=== PATIENT | female | born 1985 ===

== ENCOUNTER → 2023-09-07 12:53 | Outpatient (CLI) | payer BC, SELFPAY | PROVIDERS: Visit Provider Nurse Practitioner Family | DX: J02.9 Acute pharyngitis, unspecified (principal); K13.0 Diseases of lips | CPT/HCPCS: 87070; 87220; 87252 ==

== ENCOUNTER 2024-05-10 03:10 | Emergency (ER) | payer BC, SELFPAY ==
[2024-05-10 03:20] VITALS: BP 126/82; PULSE 82; RESP 20; TEMP 36.8; O2SAT 95; BMI 33.3
--- NOTE | 2024-05-10 05:13 | ED_ITS ---
HPI - Psych <Kobe Robles DO - Last Filed: 05/10/24 05:51> General Chief Complaint: Psychiatric Symptoms Stated Complaint: mental health evaluation Time Seen by Provider: 05/10/24 05:13 Source: patient Mode of arrival: Ambulatory History of Present Illness HPI Narrative: 39-year-old female presenting for voluntary mental health evaluation, states over the past few days has had a difficult stressful job and break up does admit to SI with plan to walk into the ocean become hypothermic and , however she denies any other symptoms such as headache visual disturbances chest pain shortness breath fever chills nausea vomiting abdominal pain or any other GI/ symptoms. Related Data Previous Rx's Medication Instructions Recorded benzocaine 20 % mucosal gel 1 applic mucous membrane QID PRN 09/02/23 (Anbesol (benzocaine) Maximum mouth irritation #9 grams Strength) fluticasone propionate 50 1 spray intranasal DAILY #16 grams 09/02/23 mcg/actuation nasal spray,suspension (Flonase Allergy Relief) amoxicillin 500 mg capsule 500 mg PO BID #20 caps 09/09/23 lorazepam 0.5 mg tablet (Ativan) 0.5 mg PO DAILY PRN anxiety #5 tabs 05/10/24 Allergies Allergy/AdvReac Type Severity Reaction Status Date / Time doxylamine Allergy Mild rash Verified 09/07/23 12:35 [From [facility] (doxylamine)] Review of Systems <DO Gretel Bishop Last Filed: 05/10/24 05:51> Review of Systems Narrative: General: Denies fever, chills, weight loss HEENT: Denies headache, eye drainage, eye irritation, head trauma, sore throat, voice change Cardiovascular: Denies any chest pain, palpitations, shortness of breath, tachycardia Respiratory: Denies any shortness of breath, cough, wheeze, stridor GI/: Denies any abdominal pain, nausea, vomiting, diarrhea, bright red blood per rectum, melanotic stools, urinary frequency, urinary retention, dysuria, hematuria MSK: Denies any joint pain, muscle pains, swelling Skin: Denies any rashes, lesions, discoloration Neuro: Denies any headache, lightheadedness, dizziness, fainting, weakness Psych: Positive SI, denies HI Patient History <Kobe Robles DO - Last Filed: 05/10/24 05:51> Social History Smoking Status: Never smoker Smoking Status: Never smoker Exam <Kobe Robles DO - Last Filed: 05/10/24 05:51> Narrative Exam Narrative: General: Cooperative, comfortable, well-developed, not in acute distress HEENT: Normocephalic, atraumatic, PERRLA, normal sclera, eyelids normal, Neck: Active full range of motion, atraumatic Chest: Normal to inspection, negative crepitus, no overlying erythema ecchymosis Respiratory: Normal respiratory effort, not in acute respiratory distress, clear to auscultation bilaterally negative cough, wheeze, tachypnea, rhonchi, rales Cardiology: Regular rate rhythm negative gallop, murmur, rubs GI/: Normal to inspection, soft, nonrigid, no tenderness to palpation, exam deferred MSK: Full range of active range of motion of all 4 extremities, atraumatic Skin: No rashes lesions noted Neuro: Alert awake oriented x3, moves all 4 extremities spontaneously, cranial nerves intact, able to answer all questions appropriately follows commands appropriately Psych: Cooperative, negative active suicidal or homicidal ideations Initial Vital Signs Initial Vital Signs: Vital Signs Temperature 98.3 F 05/10/24 03:20 Pulse Rate 82 05/10/24 03:20 Respiratory Rate 20 05/10/24 03:20 Blood Pressure 126/82 05/10/24 03:20 Pulse Oximetry 95 05/10/24 03:20 Oxygen Delivery Method Room Air 05/10/24 03:20 <Concetta Lopez, DO - Last Filed: 05/11/24 19:03> Initial Vital Signs Initial Vital Signs: Vital Signs Temperature 98.3 F 05/10/24 03:20 Pulse Rate 82 05/10/24 03:20 Respiratory Rate 20 05/10/24 03:20 Blood Pressure 126/82 05/10/24 03:20 Pulse Oximetry 95 05/10/24 03:20 Oxygen Delivery Method Room Air 05/10/24 03:20 Course <Kobe Robles DO - Last Filed: 05/10/24 05:51> Orders Ordered: ED Orders 05/10/24 03:26 Consult to PIPE MAKER - [employer] An[employer] Installer Stat 05/10/24 06:35 Complete Blood Count AUTO DIFF Stat Comprehensive Metabolic Panel Stat Ethanol (ETOH) Stat TSH w/ Reflex to FT4 Stat 05/10/24 06:45 Urine Drug Screen, Rapid Stat 05/10/24 06:47 UA Complete [Urinalysis and Microscopic] Stat Vital Signs Vital signs: Vital Signs - 8 hr 05/10/24 03:20 Temperature 98.3 F Pulse Rate 82 Respiratory Rate 20 Blood Pressure 126/82 Pulse Oximetry 95 Oxygen Delivery Method Room Air <Concetta Lopez, DO - Last Filed: 05/11/24 19:03> Orders Ordered: ED Orders 05/10/24 03:26 Consult to PIPE MAKER - Television Antenna Installer Stat 05/10/24 06:35 Complete Blood Count AUTO DIFF Stat Comprehensive Metabolic Panel Stat Ethanol (ETOH) Stat TSH w/ Reflex to FT4 Stat 05/10/24 06:45 Urine Drug Screen, Rapid Stat 05/10/24 06:47 UA Complete [Urinalysis and Microscopic] Stat Vital Signs Vital signs: Vital Signs - 8 hr 05/10/24 03:20 Temperature 98.3 F Pulse Rate 82 Respiratory Rate 20 Blood Pressure 126/82 Pulse Oximetry 95 Oxygen Delivery Method Room Air MDM - Psych <Kobe Robles, DO - Last Filed: 05/10/24 05:51> Differential Diagnosis Differential diagnosis: Likely suicidal ideation, depression and acute anxiety Lab Data 05/10/24 06:35 05/10/24 06:35 Labs: Lab Results 05/10/24 05/10/24 Range/Units 06:35 06:45 WBC 12.2 H (4.5-11.0) X10^3/uL RBC 4.51 (4.0-5.2) X10^6/uL Hgb 13.3 (12.0-16.0) g/dL Hct 39.4 (36-46) % MCV 87.3 (80-100) fL MCH 29.4 (26-34) PG MCHC 33.7 (30-36) % RDW 13.4 (11.6-14.8) % Plt Count 264 (150-400) X10^3/uL Neut % (Auto) 69.8 (50-75) % Lymph % (Auto) 21.6 L (25-40) % [place] % (Auto) 7.0 (3-14) % Eos % (Auto) 0.7 L (2-4) % Baso % (Auto) 0.9 (0-2) % Neut # (Auto) 8500 H (3435-0947) /uL Lymph # (Auto) 2600 (1279-6588) /uL [place] # (Auto) 900 (0-900) /uL Eos # (Auto) 100 (0-450) /uL Baso # (Auto) 100 (0-100) /uL Sodium 135 L (137-145) mmol/L Potassium 4.3 (3.4-5.1) mmol/L Chloride 105 (98-107) mmol/L Carbon Dioxide 24 (22-32) mmol/L BUN 10 (7-17) mg/dL Creatinine 0.84 (0.52-1.04) mg/dL Estimated GFR > 60 (>60) mL/min BUN/Creatinine Ratio 11.9 (6-22) Glucose 91 (70-100) mg/dL Calcium 9.1 (8.4-10.2) mg/dL Total Bilirubin 0.4 (0.2-1.3) mg/dL AST 24 (14-36) IU/L ALT 17 (<35) IU/L Alkaline Phosphatase 70 (38-126) U/L Total Protein 7.1 (6.3-8.2) g/dL Albumin 4.2 (3.5-5.0) g/dL Globulin 2.9 (1.7-4.1) g/dL Albumin/Globulin Ratio 1.4 (1.0-2.8) TSH 2.27 (0.47-4.68) uIU/mL U Opiates 300ng/mL cut Negative (Negative) Ur Oxycodone Screen Negative (Negative) Urine Methadone Screen Negative (Negative) Ur Barbiturates Screen Negative (Negative) U Tricyclic Antidepress Negative (Negative) Ur Phencyclidine Scrn Negative (Negative) Ur Amphetamines Screen Negative (Negative) U Methamphetamines Scrn Negative (Negative) Ur MDMA Scrn (Ecstasy) Negative (Negative) U Benzodiazepines Scrn Negative (Negative) Urine Cocaine Screen Negative (Negative) U Marijuana (THC) Screen Negative (Negative) Urine pH Normal (Normal) Urine Specific [place] Normal (Normal) Ethyl Alcohol < 10 ( - 10) mg/dL Ur Creatinine Normal (Normal) Point of Care Testing Test Results Negative MDM Narrative Medical decision making narrative: Patient is a 39-year-old female history of anxiety depression but not on any medications for this presents to the emergency department for suicidal ideations. She states that she has been having a very difficult past few months weeks but worse over the past few days states that she has been having issues with her job and no recent break-up. States that she had a plan to walk into the ocean become hypothermic and , she also states that once a week she feels like she has thoughts of not wanting to wake up again. She is requesting to talk to social work for help in regards to these thoughts she denies any homicidal ideations. She does not complaining of any other symptoms 0700: Patient is signed out to morning provider, patient to be seen by social work for suicidal ideation <Concetta Lopez DO - Last Filed: 05/11/24 19:03> Lab Data Labs: Lab Results 05/10/24 05/10/24 Range/Units 06:35 06:45 WBC 12.2 H (4.5-11.0) X10^3/uL RBC 4.51 (4.0-5.2) X10^6/uL Hgb 13.3 (12.0-16.0) g/dL Hct 39.4 (36-46) % MCV 87.3 (80-100) fL MCH 29.4 (26-34) PG MCHC 33.7 (30-36) % RDW 13.4 (11.6-14.8) % Plt Count 264 (150-400) X10^3/uL Neut % (Auto) 69.8 (50-75) % Lymph % (Auto) 21.6 L (25-40) % [place] % (Auto) 7.0 (3-14) % Eos % (Auto) 0.7 L (2-4) % Baso % (Auto) 0.9 (0-2) % Neut # (Auto) 8500 H (2355-9759) /uL Lymph # (Auto) 2600 (8234-6348) /uL [place] # (Auto) 900 (0-900) /uL Eos # (Auto) 100 (0-450) /uL Baso # (Auto) 100 (0-100) /uL Sodium 135 L (137-145) mmol/L Potassium 4.3 (3.4-5.1) mmol/L Chloride 105 (98-107) mmol/L Carbon Dioxide 24 (22-32) mmol/L BUN 10 (7-17) mg/dL Creatinine 0.84 (0.52-1.04) mg/dL Estimated GFR > 60 (>60) mL/min BUN/Creatinine Ratio 11.9 (6-22) Glucose 91 (70-100) mg/dL Calcium 9.1 (8.4-10.2) mg/dL Total Bilirubin 0.4 (0.2-1.3) mg/dL AST 24 (14-36) IU/L ALT 17 (<35) IU/L Alkaline Phosphatase 70 (38-126) U/L Total Protein 7.1 (6.3-8.2) g/dL Albumin 4.2 (3.5-5.0) g/dL Globulin 2.9 (1.7-4.1) g/dL Albumin/Globulin Ratio 1.4 (1.0-2.8) TSH 2.27 (0.47-4.68) uIU/mL U Opiates 300ng/mL cut Negative (Negative) Ur Oxycodone Screen Negative (Negative) Urine Methadone Screen Negative (Negative) Ur Barbiturates Screen Negative (Negative) U Tricyclic Antidepress Negative (Negative) Ur Phencyclidine Scrn Negative (Negative) Ur Amphetamines Screen Negative (Negative) U Methamphetamines Scrn Negative (Negative) Ur MDMA Scrn (Ecstasy) Negative (Negative) U Benzodiazepines Scrn Negative (Negative) Urine Cocaine Screen Negative (Negative) U Marijuana (THC) Screen Negative (Negative) Urine pH Normal (Normal) Urine Specific [place] Normal (Normal) Ethyl Alcohol < 10 ( - 10) mg/dL Ur Creatinine Normal (Normal) Point of Care Testing Test Results Negative MDM Narrative Medical decision making narrative: Patient is a 39-year-old female history of anxiety depression but not on any medications for this presents to the emergency department for suicidal ideations. She states that she has been having a very difficult past few months weeks but worse over the past few days states that she has been having issues with her job and no recent break-up. States that she had a plan to walk into the ocean become hypothermic and , she also states that once a week she feels like she has thoughts of not wanting to wake up again. She is requesting to talk to social work for help in regards to these thoughts she denies any homicidal ideations. She does not complaining of any other symptoms 0700: Patient is signed out to morning provider, patient to be seen by social work for suicidal ideation 0705/10/2024 Dr. Lopez: Patient signed out to myself. Patient has had suicidal ideation states no intent. Did have a plan. Patient is interested in with the PIPE MAKER she does have options for counseling and help through her work. Spoke with the patient our PIPE MAKER does not arrive till 11:00 a.m. patient has to check out of the hotel she was staying at 11:00 a.m.. Discussed we will see if PIPE MAKER from up stairs as available to speak with the patient but at this time she contracts for safety no active SI or HI and is felt to be voluntary. 0852: Patient met with the PIPE MAKER they reviewed resources she was given referral to primary Care, Psychiatry as well as [facility]. Patient is vishal for safety felt appropriate for discharge home. She appears to have good insight does not wish to harm herself currently. We will give a short course of medication for anxiety while. She was stab lashes with [facility]. Discharge Plan Departure Patient Disposition: Home Clinical Impression: Suicidal ideation Instructions: DI for Suicidal Ideation-Adult Activity Restrictions/Additional Instructions: Included below is potential option to follow up with Psychiatry. Please call to see about availability. Also follow up with the resources discussed with the social work, they will put in a referral for [facility] as well as Psychiatry. Contact information is included with your paperwork as well. Please take medication as prescribed, you can take 1 tablet has not needed for anxiety. This medication can make you sleepy do not drive, perform hazardous activities or make any major decisions while taking it. If you're feeling suicidal or having suicidal thoughts, contact the suicide hotline (this is also the number for self referral for mental health at [facility]): . Please return if you have thoughts of harming yourself or others, rapidly worsening symptoms, if you feel unsafe in any time or have other new or concerning changes. Prescriptions: New lorazepam [Ativan] 0.5 mg tablet 0.5 mg PO DAILY PRN (Reason: anxiety) Qty: 5 0RF No Action fluticasone propionate [Flonase Allergy Relief] 50 mcg/actuation spray,suspension 1 spray intranasal DAILY Qty: 16 0RF Rx Instructions: administer into each nostril Anbesol (benzocaine) Max Str 20 % gel 1 applic mucous membrane QID PRN (Reason: mouth irritation) Qty: 9 0RF amoxicillin 500 mg capsule 500 mg PO BID Qty: 20 0RF Referrals: Ty Locke DO [Physician] - Miscellaneous,Doctor, MD [Primary Care Provider] - Stand Alone Forms: Patient Portal/API/Survey
[2024-05-10 06:43] LABS: Add Manual Diff / Slide Review NO; Basophils Absolute Auto 100 /uL (0-100); Basophils Percent Auto 0.9 % (0-2); Eosinophils Absolute Auto 100 /uL (0-450); Eosinophils Percent Auto 0.7 % (2-4); Hematocrit 39.4 % (36-46); Hemoglobin 13.3 g/dL (12.0-16.0); Lymphocytes Absolute Auto 2600 /uL (1100-4500); Lymphocytes Percent Auto 21.6 % (25-40); Mean Corpuscular HGB Conc 33.7 % (30-36); Mean Corpuscular Hemoglobin 29.4 PG (26-34); Mean Corpuscular Volume 87.3 fL (80-100); Monocytes Absolute Auto 900 /uL (0-900); Neutrophils Absolute Auto 8500 /uL (1500-7000); Neutrophils Percent Auto 69.8 % (50-75); Platelet Count 264 X10^3/uL (150-400); Red Blood Cell Count 4.51 X10^6/uL (4.0-5.2); Red Cell Distribution Width 13.4 % (11.6-14.8); White Blood Cell Count 12.2 X10^3/uL (4.5-11.0)
[2024-05-10 06:56] LABS: UR Morphine/Opiate cutoff 300 Negative (Negative); Ur Creatinine Normal (Normal); Ur Specific Gravity Normal (Normal); Urine Amphetamines Negative (Negative); Urine Barbiturates Negative (Negative); Urine Benzodiazepines Negative (Negative); Urine Cocaine Negative (Negative); Urine MDMA Negative (Negative); Urine Methadone Negative (Negative); Urine Methamphetamines Negative (Negative); Urine Oxycodone Negative (Negative); Urine Phencyclidine Negative (Negative); Urine Tetrahydrocannabinol Negative (Negative); Urine Tricyclic Antidepressant Negative (Negative); Urine pH Normal (Normal)
[2024-05-10 06:56] LABS: Alanine Aminotransferase 17 IU/L (<35); Albumin 4.2 g/dL (3.5-5.0); Albumin Globulin Ratio 1.4 (1.0-2.8); Alkaline Phosphatase 70 U/L (38-126); Aspartate Aminotransferase 24 IU/L (14-36); BUN Creatinine Ratio 11.9 (6-22); Bilirubin Total 0.4 mg/dL (0.2-1.3); Blood Urea Nitrogen 10 mg/dL (7-17); Calcium 9.1 mg/dL (8.4-10.2); Carbon Dioxide 24 mmol/L (22-32); Chloride 105 mmol/L (98-107); Estimated Glomerular Filt Rate > 60 mL/min (>60); Ethanol (ETOH) < 10 mg/dL; Globulin 2.9 g/dL (1.7-4.1); Glucose 91 mg/dL (70-100); HEMOLYSIS < 15 (0-50); Potassium 4.3 mmol/L (3.4-5.1); Sodium 135 mmol/L (137-145); Total Protein 7.1 g/dL (6.3-8.2)
[2024-05-10 07:45] LABS: TSH w/ Reflex to FT4 2.27 uIU/mL (0.47-4.68)
--- NOTE | 2024-05-10 09:27 | CM.SWNOTE ---
ED GRAIN UNLOADER MACHINE Note: Reviewed EMR and team rounds for pt?s medical status. Per ED staff, pt was assessed by GRAIN UNLOADER MACHINE and created a safety plan with PCP follow up, referral to [facility] and [facility] referral. ED Provider states pt is medically cleared to mo. ED GRAIN UNLOADER MACHINE completed [facility] referral via web form. ED GRAIN UNLOADER MACHINE met with pt and introduced self and role, pt was about to discharge. Pt provided with [facility] and [facility] contact information. Plan: Pt to discharge home and will follow up with referrals for outpatient care. Team will continue to follow for coordination of discharge plans. BAILEE Dacosta
--- NOTE | 2024-05-10 16:07 | CM.SWNOTE ---
Patient is a 39 yo who was admitted to the ED on 05/09/24 for Suicidal Ideation. Pt has [facility] for insurance and no PCP established. EMR was reviewed. Per ED MD, pt admitted with increased social stressors and vague plan for suicide but stabilized overnight and able to contract for safety and requesting resources. 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 Pt is close with her [place] but no one locally. Pt states she and Sig Other this weekend and was a shock to the patient and she was able to see that her trigger includes trying to contact SO and not getting a response back and then had increased suicidal ideation with plan where she drove to the beach with idea of walking into the ocean and by hypothermia but states she got to the beach and other people were there and she ended up coming to the ED. Pt states she has a long hx of depression and has hx of MH therapy for about 6 yrs talk therapy and also had med management for a while by Psychiatrist for depression and anxiety but has not had counseling or med management for about 5 years. Pt denies any hx of Inpt MH tx. Pt states this is the first time she has had this level of suicidal ideation and first time having a vague plan. Pt confirms that she is not currently suicidal and no current plan and has good insight and awareness and able to identify some of her triggers. Discussed possible options of establishing with PCP for medical and possible medication management, Crisis Stabilization at [facility] etc.., Establishing with [facility] or outpt MH provider, Outpt Psychiatrist, Inpt MH tx. Pt currently states she needs to work time signal wirer and does not feel Inpt MH tx needed at this time but agreeable with SW to assist with [facility] group for establishing with [facility] Provider and calling [place] [employer] to attempt to expedite getting pt into services, and very interested in [facility] for Intensive Outpt MH tx. [facility] referral made, webex to [facility] group requesting to urgently schedule pt for Provider, and referral sent to [facility] and left to determine if they can bump pt up the waitlist for med management. BULL updated ED MD and RN and in agreement that pt stabilized overnight and can d/c to community with resources provided. Pt also given [facility] crisis line and pt aware that she can return to the ED at any time. CABRERA Aguila
--- NOTE | 2024-06-14 11:22 | CM.SWNOTE ---
ED POTATO SEED CUTTER Follow Up Note: Reviewed chart. POTATO SEED CUTTER received a secure message from [employer] stating pt has established in their IOP program and has been attending group therapy sessions 3x/week. No other social needs identified. BAILEE Dacosta
== END 2024-05-10 09:32 | disposition home or self-care (01) ==
PROVIDERS: Student in an Organized Health Care Education/Training Program; Emergency Provider Emergency Medicine
DX: R45.851 Suicidal ideations (principal)
CPT/HCPCS: 80053; 80305; 80320; 81025; 84443; 85025; 99283